=== PATIENT | female | born 1955 | race Caucasian/White ===

== ENCOUNTER 2018-01-01 13:02 | Emergency (ER) | payer MEDICAID ==
[~2018-01-01] VITALS: Ht 162.6 cm; Wt 65.0 kg
[2018-01-01] MEDS ORDERED: LEVO25TA7 PO (13:08)
[2018-01-01 15:05] LABS: EOSINOPHILS % 1.4 % (0.0-5.0); HEMATOCRIT. 41.4 % (36.0-48.0); HEMOGLOBIN. 14.1 g/dL (12.0-16.0); LYMPHOCYTES % 33.8 % (20.0-50.0); MEAN CORPUSCULAR HEMOGLOBIN 30.3 pg (28.0-32.0); MEAN CORPUSCULAR VOLUME 88.8 fL (81.0-99.0); MONOCYTES % 4.9 % (2.0-8.0); NEUTROPHILS % 58.9 % (40.0-76.0); PLATELET 207 x1000/uL (130-400); RED BLOOD CELL COUNT 4.67 mill/uL (4.2-5.4); RED CELL DISTRIBUTION WIDTH 13.3 % (11.6-14.6)
[2018-01-01 15:08] LABS: CHLORIDE 106 mEq/L (98-107)
[2018-01-01] MEDS ORDERED: KETOROLAC 15MG/ML VIAL IV ONE (17:00)
[2018-01-01 17:12] VITALS: BP 163/68
== END 2018-01-01 17:42 | disposition home or self-care (01) ==
LOC: ER 13:29 → CANBEDREQ 19:00
DX: I16.0 Hypertensive urgency (principal); I10 Essential (primary) hypertension; R51 Headache
CPT/HCPCS: 36415; 70450; 71045; 80053; 84484; 85025; 85610; 93005; 96374; 99285; J1885